=== PATIENT | male | born 1955 | race Caucasian/White ===

== ENCOUNTER 2021-09-01 11:24 | Emergency (ER) | payer MEDICARE, SELFPAY ==
[2021-09-01 11:38] VITALS: BP 146/50; PULSE 62; RESP 16; TEMP 36.5; O2SAT 100
--- NOTE | 2021-09-01 12:06 | PC.NURSE ---
Pt states he woke up with a bruised left upper eye lid and denies any form of injury
[2021-09-01 12:39] LABS: INR 1.9; Prothrombin Time 21.1 Seconds (11.1-14.7)
--- NOTE | 2021-09-01 12:47 | ED.EYEPROB ---
HPI - Eye Problem General Chief complaint: Eye Problems Stated complaint: L EYE HEMATOMA Time Seen by Provider: 09/01/21 11:59 History of Present Illness HPI Narrative: Patient is a 58-year-old male who presents ER with bruising over the upper eyelid on the left side. No known trauma. Just developed today. He does take Coumadin. No change in vision. No pain in the eye. Related Data Home Medications Medication Instructions Recorded Confirmed atorvastatin 09/01/21 09/01/21 digoxin 09/01/21 diltiazem HCl [DILT-XR] PO 09/01/21 furosemide 09/01/21 metoprolol tartrate 09/01/21 spironolactone 09/01/21 warfarin 09/01/21 warfarin 09/01/21 Allergies Allergy/AdvReac Type Severity Reaction Status Date / Time No Known Allergies Allergy Verified 09/01/21 11:29 Review of Systems Eyes: Eyes: Denies change in vision and Denies photophobia Integumentary/Breasts: Skin/Breast: Denies erythema and Denies rash Comments: Left upper eyelid bruising. Neurologic: Denies headache(s), Denies focal weakness and Denies numbness PMFSH Past Medical History Medical History (Updated 09/01/21 @ 13:05 by Peter Villagran MD) Atrial fibrillation Hyperlipidemia Exam Narrative: GENERAL: Well-appearing, well-nourished, and in no acute distress. HEAD: Normocephalic, atraumatic. EYES: PERRL and EOMI. contusion left upper eyelid. EXTREMITIES: Normal range of motion. No edema. NEURO: Alert and oriented x3. PSYCH: Normal mood and affect. Course Course Emergency Course: Unremarkable evaluation. Discussed INR level and recommend he contact his contact clerk which she will. Vital Signs Vital signs: Vital Signs Temperature 97.7 F 09/01/21 11:38 Pulse Rate 62 09/01/21 11:38 Respiratory Rate 16 09/01/21 11:38 Blood Pressure 146/50 H 09/01/21 11:38 Pulse Oximetry 100 09/01/21 11:38 Temperature 97.7 F 09/01/21 11:38 Pulse Rate 62 09/01/21 11:38 Respiratory Rate 16 09/01/21 11:38 Blood Pressure 146/50 H 09/01/21 11:38 Pulse Oximetry 100 09/01/21 11:38 MDM - Eye Problem Lab Data Labs: Lab Results 09/01/21 Range/Units 12:22 PT 21.1 H (11.1-14.7) Seconds INR 1.9 Discharge Plan Discharge Clinical Impression: Contusion of eyelid Patient Disposition: Home, Self-Care Condition: Stable Instructions: Contusion in Adults (ED) Additional Instructions: Your INR is 1.9. Return the ER if you are developing severe headache, you have change in vision, or you have additional concerns. Prescriptions: No Action furosemide 40 mg tablet RF: 0 atorvastatin 20 mg tablet RF: 0 diltiazem HCl [DILT-XR] 240 mg capsule,ext.rel 24h degradable PO RF: 0 warfarin 7.5 mg tablet RF: 0 spironolactone 25 mg tablet RF: 0 warfarin 5 mg tablet RF: 0 metoprolol tartrate 50 mg tablet RF: 0 digoxin 125 mcg (0.125 mg) tablet RF: 0 Follow-up/Referrals: UNKNOWN,DOCTOR [Primary Care Provider] - 1 Week
[2021-09-01 13:30] VITALS: BP 140/60; PULSE 63; RESP 18; O2SAT 99
== END 2021-09-01 13:30 | disposition home or self-care (01) ==
PROVIDERS: Emergency Provider Emergency Medicine
DX: H02.89 Other specified disorders of eyelid (principal); I48.91 Unspecified atrial fibrillation; Z79.01 Long term (current) use of anticoagulants; E78.5 Hyperlipidemia, unspecified
CPT/HCPCS: 36415; 85610; 99283